=== PATIENT | male | born 1990 | race Caucasian/White ===

== ENCOUNTER 2024-04-08 13:25 | Emergency (ER) | payer BC ==
--- NOTE | 2024-04-08 14:15 | ED ---
Nausea/Vomiting/Diarrhea HPI - General Source: patient, RN notes reviewed <Justine Hall - Last Filed: 04/08/24 14:13> <Magda Soto - Last Filed: 04/09/24 22:17> - General Stated complaint: abd pain Time Seen by Provider: 04/08/24 13:49 - History of Present Illness Initial comments: Quick Note- this is a 33-year-old male presents emergency department complaint of nausea, vomiting, diarrhea the last few weeks. He states that he has a pain in the left back that radiates into his groin as well associated with painful urination and dark urine. Patient denies fever, hematochezia, fevers, shortness of breath, rhinorrhea, cough. (Justine Hall) 33-year-old male presenting with chief complaint of nausea vomiting and diarrhea intermittently for few weeks. He notices no alleviating or aggravating factors. No hematochezia or melena. No hematemesis. He also states that he has some pain in his left side that radiates to his groin. He states he has had some dark urine recently. He denies any chest pain, difficulty breathing, fever, chills, URI-like symptoms, (Magda Soto) - Related Data Previous Rx's Medication Instructions Recorded Metoclopramide [Reglan] 10 mg PO ACHS PRN #20 tab 04/08/24 Allergies Allergy/AdvReac Type Severity Reaction Status Date / Time No Known Allergies Allergy Verified 04/08/24 14:15 Review of Systems ROS Other: All systems not noted in ROS Statement are negative. <Justine Hall - Last Filed: 04/08/24 14:13> ROS Other: All systems not noted in ROS Statement are negative. <Magda Soto - Last Filed: 04/09/24 22:17> ROS Statement: Those systems with pertinent positive or pertinent negative responses have been documented in the HPI. General Exam <Justine Hall - Last Filed: 04/08/24 14:13> Limitations: no limitations General appearance: alert, in no apparent distress Head exam: Present: atraumatic, normocephalic Eye exam: Present: normal appearance, EOMI Neck exam: Present: normal inspection. Absent: meningismus Respiratory exam: Present: normal lung sounds bilaterally. Absent: respiratory distress, wheezes, rales, rhonchi, stridor Cardiovascular Exam: Present: regular rate, normal rhythm, normal heart sounds. Absent: systolic murmur, diastolic murmur, rubs, gallop, clicks GI/Abdominal exam: Present: soft. Absent: distended, tenderness, guarding, rebound, rigid Neurological exam: Present: alert, oriented X3 Psychiatric exam: Present: normal affect, normal mood Skin exam: Present: warm, dry <Magda Soto - Last Filed: 04/09/24 22:17> - General Exam Comments Initial Comments: Visual Physical Exam Vital signs reviewed General: Well-appearing, nontoxic, no acute distress. Head: Normocephalic, atraumatic Eyes: PERRLA, EOMI ENT: Airway patent Chest: Nonlabored breathing Skin: No visual rash, normal skin tone Neuro: Alert and oriented 3 Musculoskeletal: No gross abnormalities (Justine Hall) Course Vital Signs 04/08/24 04/08/24 04/08/24 14:12 21:54 22:43 Temperature 98.3 F 97.7 F 97.8 F Pulse Rate 87 68 70 Respiratory 18 18 18 Rate Blood Pressure 137/88 136/91 144/90 O2 Sat by Pulse 98 100 99 Oximetry Medical Decision Making <Justine Hall - Last Filed: 04/08/24 14:13> - Lab Data Result diagrams: 04/08/24 15:32 04/08/24 15:32 <Magda Soto - Last Filed: 04/09/24 22:17> - Medical Decision Making I completed the quick note portion of this chart signed Justine Hall PA-C (Justine Hall) Was pt. sent in by a medical professional or institution (KETAN Alex, COSMETIC ASSEMBLER, urgent care, hospital, or longterm...) When possible be specific @ -No Did you speak to anyone other than the patient for history (EMS, parent, family, police, friend...)? What history was obtained from this source @ -No Did you review nursing and triage notes (agree or disagree)? Why? @ -I reviewed and agree with nursing and triage notes Were old charts reviewed (outside hosp., previous admission, EMS record, old EKG, old radiological studies, urgent care reports/EKG's, longterm records)? Report findings @ -No old charts were reviewed Differential Diagnosis (chest pain, altered mental status, abdominal pain women, abdominal pain men, vaginal bleeding, weakness, fever, dyspnea, syncope, headache, dizziness, GI bleed, back pain, seizure, CVA, palpatations, mental health, musculoskeletal)? @ -[facility] Differential Abdominal Pain Men: Appendicitis, cholecystitis, diverticulosis, ischemic bowel, pancreatitis, hepatitis, UTI, gastroenteritis, AAA, incarcerated hernia, bowel obstruction, constipation, inflammatory bowel, hepatitis, peptic ulcer disease, splenic infarction, perforated viscus, testicular torsion... This is not meant to be an all-inclusive list EKG interpreted by me (3pts min.). @ -As above X-rays interpreted by me (1pt min.). @ -None done CT interpreted by me (1pt min.). @ -CT shows no acute process. Hepatic steatosis. U/S interpreted by me (1pt. min.). @ -None done What testing was considered but not performed or refused? (CT, X-rays, U/S, labs)? Why? @ -None What meds were considered but not given or refused? Why? @ -None Did you discuss the management of the patient with other professionals (shanel hurtado i.e. , PA, COSMETIC ASSEMBLER, lab, RT, psych nurse, nursing home social worker, business law teacher, teacher, wildlife conservation officer, machine adjuster leader case trim)? Give summary @ -No Was smoking cessation discussed for >3mins.? @ -No Was critical care preformed (if so, how long)? @ -No Were there social determinants of health that impacted care today? How? (Homelessness, low income, unemployed, alcoholism, drug addiction, transportation, low edu. Level, literacy, decrease access to med. care, long-term, rehab)? @ -No Was there de-escalation of care discussed even if they declined (Discuss DNR or withdrawal of care, Hospice)? DNR status @ -No What co-morbidities impacted this encounter? (DM, HTN, Smoking, COPD, CAD, Cancer, CVA, ARF, Chemo, Hep., AIDS, mental health diagnosis, sleep apnea, morbid obesity)? @ -None Was patient admitted / discharged? Hospital course, mention meds given and route, prescriptions, significant lab abnormalities, going to OR and other pertinent info. @ -33-year-old male presenting with chief complaint of nausea vomiting and diarrhea. He admits to some left-sided pain that radiates into the groin as well. Workup is initiated by triage. Labs show no leukocytosis or anemia. Mildly elevated bilirubin AST and ALT. Urine shows small leukocytes with 9 WBCs. Patient is later placed in a hallway bed where he is evaluated by myself. Abdomen is soft, nontender, nondistended. Patient is treated with pain medication and antiemetics. He reports improvement in his symptoms. He is a daily marijuana smoker, I stressed the importance of cessation in regards to daily vomiting. Provided with antiemetics for home. Discharged. Follow-up with PCP. Report back to ER with any new or worsening symptoms. Discussed return parameters and answered all questions. Patient conveyed verbal understanding and agreed to the plan. I discussed this case in detail with my attending Dr. Padilla Undiagnosed new problem with uncertain prognosis? @ -No Drug Therapy requiring intensive monitoring for toxicity (Heparin, Nitro, Insulin, Cardizem)? @ -No Were any procedures done? @ -No Diagnosis/symptom? @ -Abdominal pain Acute, or Chronic, or Acute on Chronic? @ -Acute Uncomplicated (without systemic symptoms) or Complicated (systemic symptoms)? @ -Uncomplicated Side effects of treatment? @ -No Exacerbation, Progression, or Severe Exacerbation? @ -No Poses a threat to life or bodily function? How? (Chest pain, [place], [place], pneumonia, PE, COPD, DKA, ARF, appy, cholecystitis, CVA, Diverticulitis, Homicidal, Goss icidal, threat to staff... and all critical care pts) @ -Unlikely (Magda Soto) - Lab Data Lab Results 04/08/24 04/08/24 04/08/24 Range/Units 14:27 15:32 15:32 WBC 8.0 (3.8-10.6) k/uL RBC 5.21 (4.30-5.90) m/uL Hgb 17.3 (13.0-17.5) gm/dL Hct 50.7 (39.0-53.0) % MCV 97.3 (80.0-100.0) fL MCH 33.1 (25.0-35.0) pg MCHC 34.0 (31.0-37.0) g/dL RDW 12.1 (11.5-15.5) % Plt Count 177 (150-450) k/uL MPV 7.6 Neutrophils % 69 % Lymphocytes % 22 % Monocytes % 4 % Eosinophils % 4 % Basophils % 0 % Neutrophils # 5.5 (1.3-7.7) k/uL Lymphocytes # 1.7 (1.0-4.8) k/uL Monocytes # 0.4 (0-1.0) k/uL Eosinophils # 0.3 (0-0.7) k/uL Basophils # 0.0 (0-0.2) k/uL Sodium 135 L (137-145) mmol/L Potassium 4.2 (3.5-5.1) mmol/L Chloride 99 (98-107) mmol/L Carbon Dioxide 27 (22-30) mmol/L Anion Gap 9 mmol/L BUN 12 (9-20) mg/dL Creatinine 0.97 (0.66-1.25) mg/dL Est GFR (CKD-EPI)AfAm >90 (>60 ml/min/1.73 sqM) Est GFR (CKD-EPI)NonAf >90 (>60 ml/min/1.73 sqM) Glucose 96 (74-99) mg/dL Calcium 9.9 (8.4-10.2) mg/dL Total Bilirubin 1.4 H (0.2-1.3) mg/dL AST 88 H (17-59) U/L ALT 108 H (4-49) U/L Alkaline Phosphatase 71 (38-126) U/L Creatine Kinase (55-170) U/L Total Protein 7.6 (6.3-8.2) g/dL Albumin 4.9 (3.5-5.0) g/dL Amylase 43 (30-110) U/L Lipase 63 (23-300) U/L Urine Color Colorless Urine Appearance Clear (Clear) Urine pH 6.5 (5.0-8.0) Ur Specific [place] 1.007 (1.001-1.035) Urine Protein Negative (Negative) Urine Glucose (UA) Negative (Negative) Urine Ketones 1+ H (Negative) Urine Blood Negative (Negative) Urine Nitrite Negative (Negative) Urine Bilirubin Negative (Negative) Urine Urobilinogen <2.0 (<2.0) mg/dL Ur Leukocyte Esterase Small H (Negative) Urine RBC 1 (0-5) /hpf Urine WBC 9 H (0-5) /hpf Ur Squamous Epith Cells <1 (0-4) /hpf 04/08/24 Range/Units 20:55 WBC (3.8-10.6) k/uL RBC (4.30-5.90) m/uL Hgb (13.0-17.5) gm/dL Hct (39.0-53.0) % MCV (80.0-100.0) fL MCH (25.0-35.0) pg MCHC (31.0-37.0) g/dL RDW (11.5-15.5) % Plt Count (150-450) k/uL MPV Neutrophils % % Lymphocytes % % Monocytes % % Eosinophils % % Basophils % % Neutrophils # (1.3-7.7) k/uL Lymphocytes # (1.0-4.8) k/uL Monocytes # (0-1.0) k/uL Eosinophils # (0-0.7) k/uL Basophils # (0-0.2) k/uL Sodium (137-145) mmol/L Potassium (3.5-5.1) mmol/L Chloride (98-107) mmol/L Carbon Dioxide (22-30) mmol/L Anion Gap mmol/L BUN (9-20) mg/dL Creatinine (0.66-1.25) mg/dL Est GFR (CKD-EPI)AfAm (>60 ml/min/1.73 sqM) Est GFR (CKD-EPI)NonAf (>60 ml/min/1.73 sqM) Glucose (74-99) mg/dL Calcium (8.4-10.2) mg/dL Total Bilirubin (0.2-1.3) mg/dL AST (17-59) U/L ALT (4-49) U/L Alkaline Phosphatase (38-126) U/L Creatine Kinase 95 (55-170) U/L Total Protein (6.3-8.2) g/dL Albumin (3.5-5.0) g/dL Amylase (30-110) U/L Lipase (23-300) U/L Urine Color Urine Appearance (Clear) Urine pH (5.0-8.0) Ur Specific [place] (1.001-1.035) Urine Protein (Negative) Urine Glucose (UA) (Negative) Urine Ketones (Negative) Urine Blood (Negative) Urine Nitrite (Negative) Urine Bilirubin (Negative) Urine Urobilinogen (<2.0) mg/dL Ur Leukocyte Esterase (Negative) Urine RBC (0-5) /hpf Urine WBC (0-5) /hpf Ur Squamous Epith Cells (0-4) /hpf Disposition <Justine Hall - Last Filed: 04/08/24 14:13> Is patient prescribed a controlled substance at d/c from ED?: No Time of Disposition: 22:36 <Magda Soto - Last Filed: 04/09/24 22:17> Clinical Impression: Abdominal pain Disposition: HOME SELF-CARE Condition: Good Instructions (If sedation given, give patient instructions): Abdominal Pain (ED) Additional Instructions: Follow-up with PCP, suggestions provided. Report to the ER with any new or worsening symptoms. I strongly advise you to stop smoking marijuana as that will worsen your vomiting Prescriptions: Metoclopramide [Reglan] 10 mg PO ACHS PRN #20 tab PRN Reason: Nausea Referrals: None,Stated [Primary Care Provider] - 1-2 days Sakshi Disla MD [STAFF PHYSICIAN] - 1-2 days Luis Spencer MD [STAFF PHYSICIAN] - 1-2 days
[2024-04-08 14:16] VITALS: RESP 18
[2024-04-08 14:48] LABS: Appearance,Urine Clear (Clear); Bilirubin,Urine Negative (Negative); Blood,Urine Negative (Negative); Color,Urine Colorless; Glucose,Urine (UA) Negative (Negative); Ketones,Urine 1+ (Negative); Leukocyte Esterase,Urine Small (Negative); Nitrite,Urine Negative (Negative); PH, Urine 6.5 (5.0-8.0); Protein,Urine Negative (Negative); RBC,Urine 1 /hpf (0-5); Specific Gravity,Urine 1.007 (1.001-1.035); Squamous Epithelial Cell,Urine <1 /hpf (0-4); Urobilinogen,Urine <2.0 mg/dL (<2.0); WBC,Urine 9 /hpf (0-5)
[2024-04-08 15:53] LABS: Basophils % (A) 0 %; Eosinophils # (A) 0.3 k/uL (0-0.7); Eosinophils % (A) 4 %; HCT 50.7 % (39.0-53.0); HGB 17.3 gm/dL (13.0-17.5); Lymphocytes # (A) 1.7 k/uL (1.0-4.8); Lymphocytes % (A) 22 %; MCH 33.1 pg (25.0-35.0); MCV 97.3 fL (80.0-100.0); Mean Platelet Volume 7.6; Monocytes # (A) 0.4 k/uL (0-1.0); Monocytes % (A) 4 %; Neutrophils # (A) 5.5 k/uL (1.3-7.7); Neutrophils % (A) 69 %; Platelet Count 177 k/uL (150-450); RBC 5.21 m/uL (4.30-5.90); RDW 12.1 % (11.5-15.5)
[2024-04-08 16:04] LABS: ALT 108 U/L (4-49); AST 88 U/L (17-59); African American GFR (CKD) >90 (>60 ml/min/1.73 sqM); Albumin 4.9 g/dL (3.5-5.0); Alkaline Phosphatase 71 U/L (38-126); Amylase 43 U/L (30-110); Anion Gap 9 mmol/L; Blood Urea Nitrogen 12 mg/dL (9-20); Calcium 9.9 mg/dL (8.4-10.2); Carbon Dioxide 27 mmol/L (22-30); Chloride 99 mmol/L (98-107); Glucose 96 mg/dL (74-99); Lipase 63 U/L (23-300); Non-African American GFR(CKD) >90 (>60 ml/min/1.73 sqM); Potassium 4.2 mmol/L (3.5-5.1); Sodium 135 mmol/L (137-145); Total Bilirubin 1.4 mg/dL (0.2-1.3); Total Protein 7.6 g/dL (6.3-8.2)
--- NOTE | 2024-04-08 19:48 | CT ---
EXAMINATION TYPE: CT abdomen pelvis wo con CT DLP: 966.9 mGycm, Automated exposure control for dose reduction was used. DATE OF EXAM: 04/08/2024 7:38 PM COMPARISON: None. CLINICAL INDICATION:Male, 33 years old with history of pain; Rt side abdominal pain N/V/D. TECHNIQUE: Axial CT of the abdomen and pelvis. Sagittal and coronal reformats were created on a [employer] workstation. Contrast used: (none if empty) Oral contrast used: without Oral Contrast (none if empty) FINDINGS: LOWER CHEST: Unremarkable ABDOMEN LIVER: Diffuse hypoattenuation of the hepatic parenchyma GALLBLADDER AND BILE DUCTS: Unremarkable. PANCREAS: Unremarkable. SPLEEN: Unremarkable. ADRENAL GLANDS: Unremarkable. KIDNEYS AND URETERS: No evidence of hydronephrosis or renal calculus. The ureters are unremarkable. PELVIS BLADDER: Incompletely distended but grossly unremarkable. REPRODUCTIVE: Unremarkable. ABDOMEN & PELVIS STOMACH AND BOWEL: Stomach and duodenum are unremarkable. No evidence of bowel obstruction. PERITONEUM/RETROPERITONEUM: No evidence of pneumoperitoneum or free fluid. VASCULATURE: No evidence of aortic aneurysm. MUSCULOSKELETAL: No acute osseous abnormalities LYMPH NODES: No gross evidence for lymphadenopathy. SOFT TISSUE/ABDOMINAL WALL: Unremarkable IMPRESSION: 1. No acute process. 2. Hepatic steatosis
[2024-04-08] MEDS: SODIUM CHLORIDE 0.9% 500 ML 500 ML IV STA (21:01)
[2024-04-08] MEDS: SODIUM CHLORIDE 0.9% 1,000 ML IV STA (21:01)
[2024-04-08] MEDS: KETOROLAC 15 MG/ML 1 ML VIAL IVP STA (21:01)
[2024-04-08] MEDS: ONDANSETRON 4 MG/2 ML VIAL IVP STA (21:05)
[2024-04-08] MEDS: METOCLOPRAMIDE 5 MG/ML 2 ML VIAL IVP STA (21:58)
[2024-04-08 22:49] VITALS: BP 144/90; PULSE 70; TEMP 97.8
== END 2024-04-08 22:55 | disposition home or self-care (01) ==
LOC: EC 13:25
DX: R10.9 Unspecified abdominal pain (principal); K76.0 Fatty (change of) liver, not elsewhere classified
CPT/HCPCS: 36415; 80053; 82150; 82550; 83690; 85025; 81001; 74176; 99284; 96374; 96375 ×2; J2765; J2405; J1885

== ENCOUNTER 2024-07-26 06:29 | Emergency (ER) | payer BC ==
[2024-07-26 07:34] LABS: Basophils # (A) 0.1 k/uL (0-0.2); Basophils % (A) 2 %; Eosinophils # (A) 0.3 k/uL (0-0.7); Eosinophils % (A) 4 %; HCT 52.7 % (39.0-53.0); Lymphocytes # (A) 2.9 k/uL (1.0-4.8); Lymphocytes % (A) 41 %; MCH 34.7 pg (25.0-35.0); MCHC 36.1 g/dL (31.0-37.0); MCV 96.2 fL (80.0-100.0); Mean Platelet Volume 7.8; Monocytes # (A) 0.5 k/uL (0-1.0); Monocytes % (A) 6 %; Neutrophils # (A) 3.3 k/uL (1.3-7.7); Neutrophils % (A) 46 %; Platelet Count 265 k/uL (150-450); RBC 5.48 m/uL (4.30-5.90); RDW 12.5 % (11.5-15.5); WBC 7.1 k/uL (3.8-10.6)
[2024-07-26 07:41] LABS: ALT 131 U/L (4-49); AST 150 U/L (17-59); African American GFR (CKD) >90 (>60 ml/min/1.73 sqM); Albumin 4.9 g/dL (3.5-5.0); Alkaline Phosphatase 74 U/L (38-126); Amylase 46 U/L (30-110); Anion Gap 18 mmol/L; Blood Urea Nitrogen 9 mg/dL (9-20); Calcium 10.2 mg/dL (8.4-10.2); Carbon Dioxide 19 mmol/L (22-30); Chloride 106 mmol/L (98-107); Glucose 108 mg/dL (74-99); Lipase 77 U/L (23-300); Non-African American GFR(CKD) >90 (>60 ml/min/1.73 sqM); Potassium 4.3 mmol/L (3.5-5.1); Sodium 143 mmol/L (137-145); Total Bilirubin 0.7 mg/dL (0.2-1.3); Total Protein 8.2 g/dL (6.3-8.2)
[2024-07-26] MEDS: SODIUM CHLORIDE 0.9% 1,000 ML IV STA (07:50)
--- NOTE | 2024-07-26 08:12 | ED ---
General Adult HPI - General Chief complaint: Abdominal Pain Stated complaint: Nausea, Vomiting Time Seen by Provider: 07/26/24 07:55 Source: patient, RN notes reviewed, old records reviewed Mode of arrival: EMS Limitations: no limitations - History of Present Illness Initial comments: Patient is a 34-year-old male with past medical history remarkable for daily drinking who presents emergency department complaining of nausea vomiting and epigastric and right upper quadrant abdominal pain. States this has been ongoing for months. It is intermittent. He has been worked up for gallbladder pathology in the past which has been negative. Denies any chest pain or shortness of breath. Denies any constipation but does endorse a little bit of diarrhea. Endorses nonbloody emesis. No history of abdominal surgeries. Presents for further evaluation at this time. - Related Data Previous Rx's Medication Instructions Recorded Metoclopramide [Reglan] 10 mg PO ACHS PRN #20 tab 04/08/24 Pantoprazole [Protonix] 40 mg PO DAILY 14 Days #14 tab 07/26/24 Allergies Allergy/AdvReac Type Severity Reaction Status Date / Time No Known Allergies Allergy Verified 04/08/24 14:15 Review of Systems ROS Statement: Those systems with pertinent positive or pertinent negative responses have been documented in the HPI. Review of Systems: CONST: Denies fever EYES: Denies blurry vision ENT: Denies nasal congestion C/V: Denies Chest pain RESP: Denies shortness of breath GI: Endorses abdominal pain : Denies dysuria SKIN: Denies rash. MSK: Denies joint pain. NEURO: Denies headache ROS Other: All systems not noted in ROS Statement are negative. Past Medical History Past Medical History: No Reported History History of Any Multi-Drug Resistant Organisms: None Reported Past Surgical History: No Surgical Hx Reported Past Psychological History: No Psychological Hx Reported Smoking Status: Current every day smoker Past Alcohol Use History: Daily Past Drug Use History: Marijuana General Exam - General Exam Comments Initial Comments: General: Appears in mild distress secondary to abdominal pain. HEAD: Normal with no signs of head trauma. EYES: EOMI ENT: Hearing grossly intact, normal oropharynx. Mucous membranes. RESPIRATORY: Clear breath sounds bilaterally. No wheezes, rales, or rhonchi. C/V: Mild tachycardia.. S1 and S2 auscultated, peripheral pulses 2+ and intact throughout ABD: Abdomen soft, nondistended. Tender to palpation in the epigastric and right upper quadrant. No guarding or rebound tenderness. No peritoneal signs. EXT: Normal range of motion, no obvious deformity SKIN: No rashes or lesions observed on exposed skin. NEURO: Alert and oriented x 4. Limitations: no limitations Course Vital Signs 07/26/24 07/26/24 07/26/24 06:35 08:40 09:24 Temperature 98 F 97.9 F Pulse Rate 109 H 67 82 Respiratory 22 18 18 Rate Blood Pressure 127/84 131/74 136/88 O2 Sat by Pulse 98 96 97 Oximetry 07/26/24 07/26/24 07/26/24 10:50 11:40 12:51 Temperature 98.1 F 98.1 F Pulse Rate 86 76 63 Respiratory 18 18 18 Rate Blood Pressure 142/78 118/71 141/94 O2 Sat by Pulse 99 100 99 Oximetry Medical Decision Making - Medical Decision Making Was pt. sent in by a medical professional or institution (, PA, CRIPPLE CHASER, urgent care, hospital, or fci...) When possible be specific @ -No Did you speak to anyone other than the patient for history (EMS, parent, family, police, friend...)? What history was obtained from this source @ -No Did you review nursing and triage notes (agree or disagree)? Why? @ -I reviewed and agree with nursing and triage notes Were old charts reviewed (outside hosp., previous admission, EMS record, old EKG, old radiological studies, urgent care reports/EKG's, fci records)? Report findings @ -No old charts were reviewed Differential Diagnosis (chest pain, altered mental status, abdominal pain women, abdominal pain men, vaginal bleeding, weakness, fever, dyspnea, syncope, headache, dizziness, GI bleed, back pain, seizure, CVA, palpatations, mental health, musculoskeletal)? @ -Differential Abdominal Pain Men: Appendicitis, cholecystitis, diverticulosis, ischemic bowel, pancreatitis, hepatitis, UTI, gastroenteritis, AAA, incarcerated hernia, bowel obstruction, constipation, inflammatory bowel, hepatitis, peptic ulcer disease, splenic infarction, perforated viscus, testicular torsion, this is not meant to be an all-inclusive list EKG interpreted by me (3pts min.). @ -None done X-rays interpreted by me (1pt min.). @ -None done CT interpreted by me (1pt min.). @ -None done U/S interpreted by me (1pt. min.). @ -Gallbladder ultrasound reveals no obvious acute pathology. What testing was considered but not performed or refused? (CT, X-rays, U/S, labs)? Why? @ -None What meds were considered but not given or refused? Why? @ -None Did you discuss the management of the patient with other professionals (professionals i.e. DrDagoberto, PA, CRIPPLE CHASER, lab, RT, psych nurse, protective services social worker, senior nuclear medicine technologist, teacher, legal compliance officer, rehabilitation case coordinator)? Give summary @ -No Was smoking cessation discussed for >3mins.? @ -No Was critical care preformed (if so, how long)? @ -No Were there social determinants of health that impacted care today? How? ( Homelessness, low income, unemployed, alcoholism, drug addiction, transportation, low edu. Level, literacy, decrease access to med. care, senior living, rehab)? @ -No Was there de-escalation of care discussed even if they declined (Discuss DNR or withdrawal of care, Hospice)? DNR status @ -No What co-morbidities impacted this encounter? (DM, HTN, Smoking, COPD, CAD, Cancer, CVA, ARF, Chemo, Hep., AIDS, mental health diagnosis, sleep apnea, morbid obesity)? @ -Alcohol abuse, marijuana abuse Was patient admitted / discharged? Hospital course, mention meds given and route, prescriptions, significant lab abnormalities, going to OR and other pertinent info. @ -Based on patient's presentation and physical exam, presents with abdominal pain with nausea and vomiting. This has been an ongoing issue for the patient. Prior workups for gallbladder pathology have been negative. Patient is a daily alcohol drinker as well as daily marijuana use. Presents for further evaluation. Workup started in triage and I evaluated patient when he was placed in a room. Vital signs remarkable for mild tachycardia otherwise within acceptable limits. We will obtain abdominal laboratory studies, as well as a gallbladder ultrasound. Patient will be symptomatically treat with IV fluids, Haldol, Benadryl. Patient was in agreement this plan. Patient's laboratory studies remarkable for mildly elevated LFTs which is expected in the setting of alcohol abuse. Alcohol level is 211. Ultrasound unremarkable. On reevaluation, patient is feeling improved. Discussed the workup with him. Did offer admission however he would like to try to go home. He will be observed until clinically sober here in the department. He was in agreement this plan. Following multiple hours of observation, patient remains improved. I did offer observation once again however he would like to go home. He is clinically sober at this time. I believe it is safer to be discharged home. He was in agreement this plan. Strict return precautions discussed. Counseled him to stop drinking alcohol. I will provide the patient with a prescription for Protonix as well as starter pack for ODT Zofran, pack of Tylenol 3,. I instructed the patient to follow up with their PCP in the next 1-3 days.. I explained that the patient should return to the emergency department if they experience any worsening symptoms. Strict return precautions were discussed with the patient. The patient expressed understanding of these instructions. I answered all questions that the patient had. The patient was discharged home in good condition with their prescriptions and follow up information. Undiagnosed new problem with uncertain prognosis? @ -No Drug Therapy requiring intensive monitoring for toxicity (Heparin, Nitro, Insulin, Cardizem)? @ -No Were any procedures done? @ -No Diagnosis/symptom? @ -Chronic abdominal pain, nausea and vomiting, alcohol intoxication Acute, or Chronic, or Acute on Chronic? @ -Acute on chronic Uncomplicated (without systemic symptoms) or Complicated (systemic symptoms)? @ -Complicated Side effects of treatment? @ -None Exacerbation, Progression, or Severe Exacerbation] @ -No Poses a threat to life or bodily function? @ -Unlikely at this time - Lab Data Result diagrams: 07/26/24 06:45 07/26/24 06:45 Lab Results 07/26/24 07/26/24 07/26/24 Range/Units 06:45 06:45 08:01 WBC 7.1 (3.8-10.6) k/uL RBC 5.48 (4.30-5.90) m/uL Hgb 19.0 H (13.0-17.5) gm/dL Hct 52.7 (39.0-53.0) % MCV 96.2 (80.0-100.0) fL MCH 34.7 (25.0-35.0) pg MCHC 36.1 (31.0-37.0) g/dL RDW 12.5 (11.5-15.5) % Plt Count 265 (150-450) k/uL MPV 7.8 Neutrophils % 46 % Lymphocytes % 41 % Monocytes % 6 % Eosinophils % 4 % Basophils % 2 % Neutrophils # 3.3 (1.3-7.7) k/uL Lymphocytes # 2.9 (1.0-4.8) k/uL Monocytes # 0.5 (0-1.0) k/uL Eosinophils # 0.3 (0-0.7) k/uL Basophils # 0.1 (0-0.2) k/uL Sodium 143 (137-145) mmol/L Potassium 4.3 (3.5-5.1) mmol/L Chloride 106 (98-107) mmol/L Carbon Dioxide 19 L (22-30) mmol/L Anion Gap 18 mmol/L BUN 9 (9-20) mg/dL Creatinine 1.03 (0.66-1.25) mg/dL Est GFR (CKD-EPI)AfAm >90 (>60 ml/min/1.73 sqM) Est GFR (CKD-EPI)NonAf >90 (>60 ml/min/1.73 sqM) Glucose 108 H (74-99) mg/dL Calcium 10.2 (8.4-10.2) mg/dL Total Bilirubin 0.7 (0.2-1.3) mg/dL AST 150 H (17-59) U/L ALT 131 H (4-49) U/L Alkaline Phosphatase 74 (38-126) U/L Total Protein 8.2 (6.3-8.2) g/dL Albumin 4.9 (3.5-5.0) g/dL Amylase 46 (30-110) U/L Lipase 77 (23-300) U/L Serum Alcohol 211 H* mg/dL Disposition Clinical Impression: Chronic abdominal pain, Nausea and vomiting, Alcohol intoxication Disposition: HOME SELF-CARE Condition: Fair Instructions (If sedation given, give patient instructions): Abdominal Pain (ED) Prescriptions: Pantoprazole [Protonix] 40 mg PO DAILY 14 Days #14 tab Is patient prescribed a controlled substance at d/c from ED?: No Referrals: Dakota Viveros MD [Primary Care Provider] - 1-2 days Time of Disposition: 12:40
[2024-07-26 08:41] VITALS: RESP 18
[2024-07-26] MEDS: diphenhydrAMINE 50 MG/ML 1 ML VIAL IVP STA (08:41)
[2024-07-26] MEDS: HALOPERIDOL LACTATE 5 MG/ML 1 ML VIAL IVP STA (08:42)
--- NOTE | 2024-07-26 08:55 | US ---
EXAMINATION TYPE: US gallbladder DATE OF EXAM: 07/26/2024 COMPARISON: CT 04/08/24 CLINICAL INDICATION: Male, 34 years old with history of ruq pain; RUQ pain, N/V x 2 mo TECHNIQUE: Multiple sonographic images of the right upper quadrant are obtained. FINDINGS: EXAM MEASUREMENTS: Liver Length: 19.7 cm Gallbladder Wall: 0.2 cm CBD: 0.4 cm Right Kidney: 12.2 x 4.3 x 4.6 cm Pancreas: Tail obscured by overlying bowel gas Liver: Increased attenuation, decreased visualization of vessels suggestive of fatty infiltrate; hep atomegaly Gallbladder: Appears slightly hydropic 10.6 x 4.4 cm Evidence for sonographic Farmer's sign: No CBD: wnl Right Kidney: wnl IMPRESSION: 1. No gallstones, wall thickening or pericholecystic fluid. The sonographic Farmer sign is negative 2. Mild hepatomegaly with fatty infiltration 3. Limited evaluation of pancreas [facility], Workstation: KARLEY 07/26/2024 8:53 AM
[2024-07-26 10:52] VITALS: TEMP 98.1
[2024-07-26] MEDS: ACET/COD 300 MG/30 MG STARTER PACK 6 TAB BTL PO STA (12:47)
[2024-07-26] MEDS: PANTOPRAZOLE 40 MG/10 ML VIAL IVP STA (12:47)
[2024-07-26] MEDS: ONDANSETRON 4 MG ODT STARTER PACK 2 TAB BTL PO STA (12:47)
[2024-07-26 12:54] VITALS: BP 141/94; PULSE 63
== END 2024-07-26 12:54 | disposition home or self-care (01) ==
LOC: EC 06:29
CPT/HCPCS: 36415; 76705; 80053; 80320; 82150; 83690; 85025